=== PATIENT | male | born 1990 | race Caucasian/White ===

== ENCOUNTER 2025-10-08 17:51 | Emergency (ER) | payer SELFPAY ==
[2025-10-08] MEDS: Ketorolac 15 MG/ML SDV IM ONE (19:27)
== END 2025-10-08 20:40 | disposition home or self-care (01) ==
LOC: JP.ED 17:51
DX: S22.32XA Fracture of one rib, left side, initial encounter for closed fracture (principal); Z91.048 Other nonmedicinal substance allergy status; Z79.899 Other long term (current) drug therapy; W10.9XXA Fall (on) (from) unspecified stairs and steps, initial encounter; Y93.89 Activity, other specified
CPT/HCPCS: 71101; 96374; 99283; A9270; J1885

== ENCOUNTER 2025-11-02 11:01 | Emergency (ER) | payer SELFPAY | END 2025-11-02 11:46 | disposition home or self-care (01) | LOC: JP.ED 11:01 | DX: G40.409 Other generalized epilepsy and epileptic syndromes, not intractable, without status epilepticus (principal); Z79.899 Other long term (current) drug therapy; Z88.8 Allergy status to other drugs, medicaments and biological substances | CPT/HCPCS: 99283; 99284; A9270 ==